=== PATIENT | female | born 1990 | race Asian ===

== ENCOUNTER 2024-08-08 13:07 | Emergency (ER) | payer SELFPAY ==
[~2024-08-08] VITALS: Ht 154.9 cm; Wt 64.0 kg
[2024-08-08 13:19] VITALS: BP 111/59; TEMP 98.1; O2SAT 98
[2024-08-08] MEDS ORDERED: ONDANSETRON 4 MG TAB.RAPDIS ONE (13:30)
[2024-08-08] MEDS ORDERED: KETOROLAC TROMETHAMINE 15 MG/ML VIAL ONE (13:30)
[2024-08-08] MEDS: KETOROLAC TROMETHAMINE 15 MG/ML VIAL IM ONE (13:35)
[2024-08-08] MEDS: ONDANSETRON 4 MG TAB.RAPDIS PO ONE (13:37)
== END 2024-08-08 15:01 | disposition home or self-care (01) ==
LOC: ER 13:16
DX: M25.551 Pain in right hip (principal); R11.0 Nausea; R51.9 Headache, unspecified; V43.52XA Car driver injured in collision with other type car in traffic accident, initial encounter; Y93.89 Activity, other specified; Y92.488 Other paved roadways as the place of occurrence of the external cause; Y99.8 Other external cause status
CPT/HCPCS: 99283; 96372; J1885; Q0162